=== PATIENT | male | born 1935 | race Caucasian/White ===

== ENCOUNTER 2018-12-18 11:23 | Inpatient (IN) | payer MEDICARE ==
[~2018-12-18] VITALS: Ht 188 cm; Wt 93.5 kg
[2018-12-18 12:10] LABS: Basophils # (auto) 0 uL; Basophils % (auto) 0.9 % (0.0-2.0); Eosinophils # (auto) 0.1 uL; Eosinophils % (auto) 1.3 % (0.0-7.0); Hematocrit 46.1 % (41.0-53.0); Hemoglobin 15.5 g/dL (13.5-17.5); Lymphocytes # (auto) 1.2 uL; Lymphocytes % (auto) 23.5 % (10.0-50.0); Mean Corpuscular Hemoglobin 32.2 pg (28.0-32.0); Mean Corpuscular Hgb Conc. 33.5 g/dL (32.0-36.0); Mean Corpuscular Volume 96.2 fL (80.0-100.0); Monocytes # (auto) 0.4 uL; Monocytes % (auto) 8.8 % (0.0-12.0); Neutrophils # (auto) 3.3 uL; Neutrophils % (auto) 65.5 % (37.0-80.0); Platelet Count (auto) 236 10^3/uL (140-450); Red Cell Distribution Width 13.6 % (11.8-14.3)
[2018-12-18 12:28] LABS: Albumin 3.7 g/dL (3.4-5.0); Anion Gap 8 (5-15); Blood Urea Nitrogen 9 mg/dL (7-18); Calcium 8.2 mg/dL (8.5-10.1); Carbon Dioxide 22 mmol/L (21-32); Chloride 108 mmol/L (98-107); Glucose 92 mg/dL (74-106); Potassium 3.8 mmol/L (3.5-5.1); Sodium 138 mmol/L (136-145)
[2018-12-18 12:33] LABS: Alanine Aminotransferase 18 U/L (16-61); Alkaline Phosphatase 69 U/L (45-117); Aspartate Aminotransferase 18 U/L (15-37); BUN/Creatinine Ratio 11.3; Bilirubin, Total 0.9 mg/dL (0.2-1.0); GFR African American 118 mL/min; GFR Non-African American 98 mL/min; Total Protein 6.3 g/dL (6.4-8.2)
[2018-12-18 12:42] LABS: INR 0.96 (0.9-1.15); Partial Thromboplastin Time 26.4 sec (23.78-33.04); Prothrombin Time 10.3 sec (9.27-12.13)
[2018-12-18] MEDS ORDERED: SODIUM CHLORIDE 0.9% 1,000 ML IV ONE (13:17)
[2018-12-18] MEDS ORDERED: hydrALAZINE HCL 20 MG/ML VL IV ONE ×2 (14:15→15:00)
[2018-12-18] MEDS ORDERED: PROMETHAZINE HCL 25 MG/ML 1ML IV PRN (15:00)
[2018-12-18] MEDS ORDERED: ACETAMINOPHEN 500 MG TAB PO PRN (15:00)
[2018-12-18] MEDS ORDERED: hydrALAZINE HCL 25 MG TAB PO ONE (15:00)
[2018-12-18] MEDS ORDERED: HYDROcodone-ACET 5/325MG TAB PO PRN (15:00)
[2018-12-18] MEDS ORDERED: LACTULOSE 20Gm/30ML SOLN PO PRN (15:00)
[2018-12-18] MEDS ORDERED: hydrALAZINE HCL 20 MG/ML VL IV PRN ×2 (15:00)
[2018-12-18] MEDS ORDERED: TEMAZEPAM 15 MG CAP PO PRN (15:00)
[2018-12-18] MEDS ORDERED: MORPHINE SULFATE 4 MG/ML SYR/VIAL IV PRN ×3 (15:00→18:30)
[2018-12-18] MEDS ORDERED: LORazepam 0.5 MG TAB PO PRN (15:00)
[2018-12-18] MEDS ORDERED: NITROGLYCERIN 0.4 MG SL TAB SL PRN ×2 (15:00→18:30)
[2018-12-18] MEDS: SODIUM CHLORIDE 0.9% 1,000 ML IV SCH ×2 (15:22→17:21)
[2018-12-18 15:23] LABS: Urine Bacteria NONE SEEN /hpf (None Seen); Urine Blood Negative /uL (Negative); Urine Specific Gravity 1.013 (1.001-1.035); Urine WBC <1 /hpf (0 - 3)
[2018-12-18] MEDS ORDERED: IOHEXOL 350 MG/ML 100ML IJ ONE (16:24)
[2018-12-18] MEDS ORDERED: LABETALOL HCL 5 MG/ML ML 20ML VIAL IV PRN (16:45)
[2018-12-18] MEDS ORDERED: ACETAMINOPHEN 650 MG RECT SUPP PR PRN (16:45)
[2018-12-18] MEDS ORDERED: LORazepam 2MG/ML-1ML VIAL IV PRN (16:45)
[2018-12-18 17:13] LABS: Cholesterol 210 mg/dL (< 200); Triglycerides 101 mg/dL (< 150)
[2018-12-18 17:15] LABS: HDL Cholesterol 60 mg/dL (40-59); LDL Cholesterol 132 mg/dL (< 100)
[2018-12-18] MEDS ORDERED: NICARDIPINE 25MG/250ML BAG KIT 250 ML IV SCH (17:30)
[2018-12-18] MEDS: hydrALAZINE HCL 20 MG/ML VL IV PRN (18:16)
[2018-12-18] MEDS ORDERED: ATORVASTATIN 20 MG TAB PO SCH (22:00)
[2018-12-18] MEDS: hydrALAZINE HCL 25 MG TAB PO SCH (22:00)
[2018-12-19 01:13] VITALS: BP 92/44
--- NOTE | 2018-12-19 01:24 | NUR ---
PT'S SON, SABINO TO BRING IN ACCURATE LIST OF HOME MEDS PT HAVING DIFFICULT TIME REMEMBERING AND ARTICULATING WORDS AND NAMES OF MEDICATIONS
[2018-12-19] MEDS ORDERED: hydrALAZINE HCL 20 MG/ML VL ONE ×3 (02:26→09:12)
[2018-12-19] MEDS: hydrALAZINE HCL 20 MG/ML VL IV PRN ×6 (02:30→20:05)
[2018-12-19] MEDS: SODIUM CHLORIDE 0.9% 1,000 ML IV SCH ×3 (03:36→15:50)
[2018-12-19] MEDS: hydrALAZINE HCL 25 MG TAB PO SCH ×3 (05:53→23:59)
[2018-12-19] MEDS ORDERED: LORazepam 2MG/ML-1ML VIAL ONE (08:08)
[2018-12-19] MEDS ORDERED: HALOPERIDOL LACTATE 5 MG/ML INJ VIAL ONE (08:55)
[2018-12-19] MEDS ORDERED: diphenhdrAMINE HCL 50 MG/1 ML VL ONE (08:56)
[2018-12-19] MEDS ORDERED: diphenhdrAMINE HCL 50 MG/1 ML VL IV ONE (09:00)
[2018-12-19] MEDS ORDERED: HALOPERIDOL LACTATE 5 MG/ML INJ VIAL IM ONE (09:00)
[2018-12-19 09:53] LABS: Folate (Folic Acid) 17.24 ng/mL (5.38-24)
[2018-12-19] MEDS: ASPirin 81 mg TAB PO SCH (10:00)
[2018-12-19] MEDS: PANTOPRAZOLE 40 MG TAB PO SCH (10:00)
[2018-12-19] MEDS ORDERED: ENOXAPARIN SOD 30 MG/0.3 ML SYRINGE ONE (10:18)
[2018-12-19] MEDS: ENOXAPARIN SOD 40 MG/0.4 ML SYRINGE SC SCH (10:19)
[2018-12-19] MEDS ORDERED: CYANOCOBALAMIN (B-12) 1000 MCG/1 ML VIAL SUBCUT ONE (13:00)
--- NOTE | 2018-12-19 13:30 | NUR ---
MS admit from [facility] admitted to tele room 5462i. Patient oriented to JUAN M LATIF, primary RN, unit, room, bed, and unit policies regarding patient care and visiting hours. A&Ox1-2 related to acute CVA, bedrest, and pain level 0//10. Per family, baseline is independent without assistive devices. Bed locked in lowest position, side rails up x2, call light within reach, and bed alarm on for patient safety. IV 20 g left forearm running NS at 80 ml/hr inserted on 12/18/18. Skin intact: generalized bruising on bilateral arms. Patient weighed by [email or web address] and encouraged to call if they need something. Addendum: 12/19/18 at 1906 by JUAN M LATIF RN Elena inserted on 12/18/18 for strict I/O.
[2018-12-19 14:00] VITALS: BP 184/99
--- NOTE | 2018-12-19 16:37 | NUR ---
SWALLOW EVALUATED. PATIENT ALOC. DIFFICULTY WITH ALERTNESS ENOUGH TO SWALLOW. ABLE TO TOLERATE PUREE TRIAL TEXTURE WITH MAXIMUM ENCOURAGEMENT. ABLE TO TOLERATE NECTAR THICKENED LIQUIDS WITH NO OVERT SIGNS OR SYMPTOMS OF ASPIRATION. NURSING NOTIFIED.
[2018-12-19 17:27] VITALS: BP 190/90
[2018-12-19 17:30] VITALS: BP 188/99
--- NOTE | 2018-12-19 19:35 | NUR ---
Opening Shift Note Assumed care of patient, awake and alert to self only. No S/S of distress/SOB on room air. Denies pain at this time. Bed locked in lowest position call light within reach. Instructed on POC and to call for assist PRN, will continue to monitor for changes Q1hr and PRN.
[2018-12-19 20:05] VITALS: BP 183/93
[2018-12-19 22:00] VITALS: BP 159/78
[2018-12-19] MEDS: ATORVASTATIN 20 MG TAB PO SCH (23:58)
--- NOTE | 2018-12-20 02:00 | NUR ---
Patient has 100 ml of UO in khanna catheter bag. Bladder scanner showed 100 ml at most. will continue to monitor
[2018-12-20] MEDS: SODIUM CHLORIDE 0.9% 1,000 ML IV SCH ×3 (04:20→15:24)
[2018-12-20] MEDS: hydrALAZINE HCL 20 MG/ML VL IV PRN ×4 (05:17→22:43)
[2018-12-20 05:56] VITALS: BP 171/98
[2018-12-20] MEDS: hydrALAZINE HCL 25 MG TAB PO SCH ×3 (06:55→22:41)
[2018-12-20 09:00] VITALS: BP 197/102
[2018-12-20] MEDS: ASPirin 81 mg TAB PO SCH (10:28)
[2018-12-20] MEDS: ENOXAPARIN SOD 40 MG/0.4 ML SYRINGE SC SCH (10:29)
[2018-12-20] MEDS: PANTOPRAZOLE 40 MG TAB PO SCH (10:29)
[2018-12-20] MEDS: CYANOCOBALAMIN (B-12) 1000 MCG/1 ML VIAL SUBCUT SCH (10:30)
--- NOTE | 2018-12-20 11:30 | NUR ---
DR. SARKAR AT BEDSIDE DISCUSSING POC WITH PATIENT AND SON SABINO. PATIENT IS TO BE TRANSFERRED TO [facility]
--- NOTE | 2018-12-20 11:30 | NUR ---
EEG COMPLETED AT BEDSIDE KATHARINE LILLY [phone] AWARE
[2018-12-20 12:15] LABS: Basophils # (auto) 0 uL; Eosinophils # (auto) 0 uL; Lymphocytes # (auto) 0.6 uL; Mean Corpuscular Volume 95.8 fL (80.0-100.0); Nucleated Red Blood Cells % 0.1 %
[2018-12-20 12:17] LABS: Basophils % (auto) 0.3 % (0.0-2.0); Eosinophils % (auto) 0.1 % (0.0-7.0); Hemoglobin 17.6 g/dL (13.5-17.5); Mean Corpuscular Hemoglobin 32.5 pg (28.0-32.0); Monocytes # (auto) 0.7 uL; Monocytes % (auto) 6.9 % (0.0-12.0); Neutrophils # (auto) 8.4 uL; Neutrophils % (auto) 86.7 % (37.0-80.0); Platelet Count (auto) 281 10^3/uL (140-450); Red Blood Cells 5.42 10^6/uL (4.5-5.90); Red Cell Distribution Width 13.9 % (11.8-14.3); White Blood Cell 9.7 10^3/uL (4.4-10.8)
[2018-12-20 12:31] LABS: Albumin 3.8 g/dL (3.4-5.0); Calcium 8.8 mg/dL (8.5-10.1); Magnesium 2.4 mg/dL (1.6-2.6); Potassium 3.5 mmol/L (3.5-5.1)
[2018-12-20 12:36] LABS: BUN/Creatinine Ratio 18.9; Bilirubin, Total 1.5 mg/dL (0.2-1.0); Total Protein 6.9 g/dL (6.4-8.2)
[2018-12-20 13:00] VITALS: BP 195/104
[2018-12-20 17:00] VITALS: BP 184/96
[2018-12-20 22:00] VITALS: BP 174/115
[2018-12-20] MEDS: ATORVASTATIN 20 MG TAB PO SCH (22:42)
[2018-12-21] MEDS: SODIUM CHLORIDE 0.9% 1,000 ML IV SCH ×2 (01:32)
[2018-12-21] MEDS: hydrALAZINE HCL 20 MG/ML VL IV PRN ×4 (03:29→23:01)
[2018-12-21 04:49] VITALS: BP 196/110
--- NOTE | 2018-12-21 07:00 | NUR ---
Opening Shift Note Assumed care of patient, awake and alert. No S/S of distress/SOB or pain. Instructed on POC and to call for assist PRN placed call light in patients left hand , will continue to monitor for changes Q1hr and PRN.
[2018-12-21] MEDS: hydrALAZINE HCL 25 MG TAB PO SCH ×3 (07:01→21:55)
[2018-12-21 08:16] VITALS: BP 103/107
[2018-12-21] MEDS ORDERED: LORazepam 2MG/ML-1ML VIAL IV PRN (09:00)
--- NOTE | 2018-12-21 09:07 | NUR ---
PAGED DR. SARKAR PATIENT IS RUNNING SVT HR AT 189
[2018-12-21] MEDS: PANTOPRAZOLE 40 MG TAB PO SCH (10:00)
[2018-12-21] MEDS: ASPirin 81 mg TAB PO SCH (10:00)
--- NOTE | 2018-12-21 10:05 | NUR ---
patient is still having accelerated HR. Dr. Mejia requesting EKG and cardiology consult
[2018-12-21] MEDS: CYANOCOBALAMIN (B-12) 1000 MCG/1 ML VIAL SUBCUT SCH (10:39)
[2018-12-21] MEDS: ENOXAPARIN SOD 40 MG/0.4 ML SYRINGE SC SCH (10:39)
[2018-12-21] MEDS ORDERED: METOPROLOL TARTRATE 1MG/1ML-5ML VIAL IV PRN (11:00)
[2018-12-21 12:26] VITALS: BP 179/107
--- NOTE | 2018-12-21 13:00 | NUR ---
patient down for MRI.
[2018-12-21 14:56] LABS: Free T3 2.18 pg/mL (2.3-4.2); Free T4 (Free Thyroxine) 1.14 ng/dL (0.89-1.76)
--- NOTE | 2018-12-21 15:00 | NUR ---
dr. barragan at bedside discussing poc with patient.
[2018-12-21] MEDS ORDERED: METOPROLOL TARTRATE 1MG/1ML-5ML VIAL IV ONE (15:15)
[2018-12-21 17:01] VITALS: BP 170/101
[2018-12-21] MEDS ORDERED: HALOPERIDOL LACTATE 5 MG/ML INJ VIAL IM PRN (20:30)
[2018-12-21 21:29] VITALS: BP 187/102
[2018-12-21] MEDS: ATORVASTATIN 20 MG TAB PO SCH (21:55)
[2018-12-21] MEDS: METOPROLOL TARTRATE 25 MG TAB PO SCH (21:56)
[2018-12-22] VITALS (54 sets, daily range): BP systolic 120–197; BP diastolic 60–116
[2018-12-22] MEDS: hydrALAZINE HCL 25 MG TAB PO SCH ×3 (06:00→22:00)
[2018-12-22 06:15] LABS: Basophils # (auto) 0 uL; Basophils % (auto) 0.5 % (0.0-2.0); Eosinophils # (auto) 0 uL; Eosinophils % (auto) 0.5 % (0.0-7.0); Hematocrit 48.4 % (41.0-53.0); Hemoglobin 16.5 g/dL (13.5-17.5); Lymphocytes # (auto) 0.7 uL; Lymphocytes % (auto) 9.2 % (10.0-50.0); Mean Corpuscular Hemoglobin 32.9 pg (28.0-32.0); Mean Corpuscular Hgb Conc. 34.1 g/dL (32.0-36.0); Mean Corpuscular Volume 96.6 fL (80.0-100.0); Monocytes # (auto) 0.7 uL; Neutrophils # (auto) 6.1 uL; Neutrophils % (auto) 80.8 % (37.0-80.0); Platelet Count (auto) 252 10^3/uL (140-450); Red Blood Cells 5.01 10^6/uL (4.5-5.90); Red Cell Distribution Width 13.9 % (11.8-14.3); White Blood Cell 7.6 10^3/uL (4.4-10.8)
[2018-12-22 06:24] LABS: Albumin 3.4 g/dL (3.4-5.0); Calcium 8.3 mg/dL (8.5-10.1); Magnesium 2.2 mg/dL (1.6-2.6); Potassium 3.3 mmol/L (3.5-5.1)
[2018-12-22] MEDS: hydrALAZINE HCL 20 MG/ML VL IV PRN ×3 (06:27→09:36)
[2018-12-22 06:30] LABS: BUN/Creatinine Ratio 30.4; Total Protein 6.2 g/dL (6.4-8.2)
[2018-12-22] MEDS: PANTOPRAZOLE 40 MG TAB PO SCH (10:00)
[2018-12-22] MEDS ORDERED: NICARDIPINE 25MG/250ML BAG KIT 250 ML IV SCH (10:00)
[2018-12-22] MEDS: METOPROLOL TARTRATE 25 MG TAB PO SCH (10:00)
--- NOTE | 2018-12-22 11:08 | NUR ---
SPOKE WITH DR GALLARDO. VERIFIED CARDENE IV GTT ORDER. NEW ORDER RECEIVED FOR CLONIDINE 0.2MG PO BID AND OK TO PLACE NGT IF NECESSARY.
--- NOTE | 2018-12-22 11:12 | NUR ---
OPEN. REPORT RECEIVED FROM ICU WOOD CUT ENGRAVER ROBIN, ASSUMED CARE OF THE PT. VITAL SIGNS STABLE AT THIS TIME, WITH EXCEPTION OF ELEVATED BP: 163/82. PT IS CURRENTLY ICU STATUS DUE TO CARDIAC MEDICATION GTT. NEW ORDERS VERIFIED WITH DR GALLARDO BY WOOD CUT ENGRAVER ROBIN. SEE INTERVENTIONS FOR INITIAL ASSESSMENT. WILL CONTINUE TO MONITOR PT.
[2018-12-22] MEDS: cloNIDine HCL 0.1 MG TAB PO SCH (11:15)
[2018-12-22] MEDS ORDERED: cloNIDine HCL 0.1 MG TAB PO ONE (11:15)
--- NOTE | 2018-12-22 12:07 | NUR ---
assessment Patient is a 83 year old male who is confused. Per patients son Issa they were traveling to the [facility] when patient became ill and was transported to ER. Prior to admission patient lived home with his son Issa and functioned with assistance for memory and cooking. Patient showered, dressed, and ambulated on his own, patient was able to feed himself. Per Issa patient will need rehab for this new CVA. Issa has requested [facility] [phone] fax [phone]. Per consult transfer for rehabilitation. MD order has been sent to [facility]. Waiting on reply back now. Addendum: 12/22/18 at 1213 by Judy TOMLIN Amended: Links added.
[2018-12-22] MEDS: POTASSIUM CHL 20MEQ/100ML 100 ML IV SCH ×2 (12:45→14:30)
[2018-12-22] MEDS: CYANOCOBALAMIN (B-12) 1000 MCG/1 ML VIAL SUBCUT SCH (12:51)
[2018-12-22] MEDS: ASPirin 81 mg TAB PO SCH (13:26)
--- NOTE | 2018-12-22 14:47 | NUR ---
NUTRITION ASSESSMENT NOTES Please refer to link notes of nutrition screen form filed under the intervention section of the plan of care for further details. Est. Needs: 2150 kcal to 2600 kcal (25-30 kcal/kgBW), 87 gms to 104 gms pro (1.0-1.2 gms/kgBW). Will continue to monitor pertinent labs and reassess nutrient need prn Thank you. Addendum: 12/22/18 at [address] Amended: Links added.
--- NOTE | 2018-12-22 15:24 | NUR ---
DR GALLARDO NOTIFIED OF RUNS OF SVT. NEW ORDERS IN PLACE AT THIS TIME.
[2018-12-22] MEDS: NICARDIPINE 25MG/250ML BAG KIT 250 ML IV SCH (16:15)
[2018-12-22 17:01] LABS: Albumin 3.6 g/dL (3.4-5.0); Calcium 8.3 mg/dL (8.5-10.1); Magnesium 2.2 mg/dL (1.6-2.6); Potassium 3.8 mmol/L (3.5-5.1)
[2018-12-22] MEDS: MAGNESIUM SULFATE 1GM/100ML 100 ML IV SCH ×2 (17:01→17:49)
[2018-12-22 17:03] LABS: BUN/Creatinine Ratio 31.7
[2018-12-22 17:15] LABS: Bilirubin, Total 1.8 mg/dL (0.2-1.0); Total Protein 6.8 g/dL (6.4-8.2)
--- NOTE | 2018-12-22 17:46 | NUR ---
DR FIGUEROA AT BEDSIDE, EXAMINED PATIENT AND SPOKE WITH SON
[2018-12-22] MEDS: METOPROLOL TARTRATE 1MG/1ML-5ML VIAL IV SCH ×2 (19:15→22:00)
[2018-12-22] MEDS ORDERED: cloNIDine HCL 0.1 MG TAB PO SCH (22:00)
[2018-12-23] VITALS (84 sets, daily range): BP systolic 96–183; BP diastolic 55–102
[2018-12-23] MEDS: ATORVASTATIN 20 MG TAB PO SCH ×2 (00:01→21:26)
[2018-12-23] MEDS: cloNIDine HCL 0.1 MG TAB PO SCH ×3 (00:01→21:25)
[2018-12-23] MEDS: METOPROLOL TARTRATE 1MG/1ML-5ML VIAL IV SCH ×3 (02:00→10:53)
--- NOTE | 2018-12-23 02:39 | NUR ---
Rounds PT resting in bed. no signs/symptoms of distress noted. will continue to monitor.
--- NOTE | 2018-12-23 02:43 | NUR ---
BLOOD PRESSURE 105/64. NICARDIPINE DRIP TURNED DOWN TO 2MG AT THIS TIME.
[2018-12-23 04:04] LABS: Basophils # (auto) 0.1 uL; Basophils % (auto) 1.1 % (0.0-2.0); Eosinophils # (auto) 0 uL; Eosinophils % (auto) 0.4 % (0.0-7.0); Hematocrit 47.7 % (41.0-53.0); Hemoglobin 16.3 g/dL (13.5-17.5); Lymphocytes # (auto) 0.4 uL; Lymphocytes % (auto) 6.7 % (10.0-50.0); Mean Corpuscular Hemoglobin 33.1 pg (28.0-32.0); Mean Corpuscular Hgb Conc. 34.1 g/dL (32.0-36.0); Monocytes # (auto) 0.6 uL; Monocytes % (auto) 9.3 % (0.0-12.0); Neutrophils # (auto) 5.5 uL; Neutrophils % (auto) 82.5 % (37.0-80.0); Platelet Count (auto) 245 10^3/uL (140-450); Red Blood Cells 4.91 10^6/uL (4.5-5.90); White Blood Cell 6.7 10^3/uL (4.4-10.8)
[2018-12-23 04:14] LABS: Potassium 3.6 mmol/L (3.5-5.1)
[2018-12-23 04:19] LABS: Albumin 3.3 g/dL (3.4-5.0); BUN/Creatinine Ratio 40.8; Bilirubin, Total 1.6 mg/dL (0.2-1.0); Calcium 8.4 mg/dL (8.5-10.1); Total Protein 6.1 g/dL (6.4-8.2)
[2018-12-23] MEDS: hydrALAZINE HCL 25 MG TAB PO SCH (06:00)
--- NOTE | 2018-12-23 07:42 | NUR ---
OPEN. REPORT RECEIVED FROM EXTERN RN ALURA, ASSUMED CARE OF PT. VITAL SIGNS STABLE AT THIS TIME, SEE INTERVENTIONS FOR INITIAL ASSESSMENT. WILL CONTINUE TO MONITOR PT.
[2018-12-23] MEDS: NICARDIPINE 25MG/250ML BAG KIT 250 ML IV SCH ×3 (09:41→14:41)
[2018-12-23] MEDS: PANTOPRAZOLE 40 MG TAB PO SCH (10:00)
[2018-12-23] MEDS: ASPirin 81 mg TAB PO SCH (10:33)
[2018-12-23] MEDS: CYANOCOBALAMIN (B-12) 1000 MCG/1 ML VIAL SUBCUT SCH (10:34)
--- NOTE | 2018-12-23 12:08 | NUR ---
DR GALLARDO AT BEDSIDE, NEW ORDERS IN PLACE A THIS TIME.
[2018-12-23] MEDS ORDERED: LISINOPRIL 20 MG TAB PO ONE (12:15)
--- NOTE | 2018-12-23 12:55 | NUR ---
DR SARKAR AT BEDSIDE, NO NEW ORDERS AT THIS TIME.
--- NOTE | 2018-12-23 13:05 | NUR ---
PT TO REMAIN ICU STATUS MINIMUM ONE MORE NIGHT PER DR SARKAR, WILL CONTINUE TO MONITOR PT.
[2018-12-23] MEDS: Ensure Enlive Strawberry 8oz Bottle PO SCH (18:00)
[2018-12-23] MEDS: hydrALAZINE HCL 20 MG/ML VL IV PRN (18:52)
--- NOTE | 2018-12-23 19:35 | NUR ---
RECEIVED REPORT FROM DAY SHIFT RN.
[2018-12-23] MEDS: LISINOPRIL 20 MG TAB PO SCH (21:26)
[2018-12-23] MEDS: METOPROLOL TARTRATE 25 MG TAB PO SCH (21:26)
--- NOTE | 2018-12-23 22:42 | NUR ---
OPEN RECEIVED REPORT FROM DAY SHIFT RN. PT RESTING IN BED WITH EYES CLOSED. RESPONDS TO VERBAL STIMULI AND OPENS EYES. SPEECH IS DELAYED AND SLIGHTLY SLURRED BUT APPROPRIATE. PT STATED HE IS NOT HUNGRY WHEN ASKED IF HE WANTED SOME OF HIS DINNER. ENCOURAGED PT TO EAT. PT VERBALIZED UNDERSTANDING. LUNGS SOUND CLEAR. RIGHT HAND IS WEAKER THAN LEFT. SEE FULL ASSESSMENT IN INTERVENTIONS. BABB CATHETER IN PLACE AND DRAINING TO GRAVITY. NO S/S OF DISTRESS NOTED. REPOSITIONED AND TURNED FOR COMFORT. PT IN FULL VIEW OF RN. WILL CONTINUE TO MONITOR CLOSELY.
[2018-12-24] VITALS (81 sets, daily range): BP systolic 119–209; BP diastolic 57–113
[2018-12-24] MEDS: hydrALAZINE HCL 20 MG/ML VL IV PRN ×3 (02:04→14:37)
--- NOTE | 2018-12-24 03:30 | NUR ---
PARTIAL LINEN CHANGE PERFORMED AND CLEANSED PT WITH WIPES. BLOOD CLOTS NOTED IN BABB CATHETER.
[2018-12-24 03:49] LABS: Basophils # (auto) 0 uL; Basophils % (auto) 0.3 % (0.0-2.0); Eosinophils # (auto) 0.1 uL; Eosinophils % (auto) 1.1 % (0.0-7.0); Hematocrit 47.5 % (41.0-53.0); Hemoglobin 16.3 g/dL (13.5-17.5); Lymphocytes # (auto) 0.7 uL; Lymphocytes % (auto) 10.4 % (10.0-50.0); Mean Corpuscular Hemoglobin 33.1 pg (28.0-32.0); Mean Corpuscular Hgb Conc. 34.3 g/dL (32.0-36.0); Mean Corpuscular Volume 96.5 fL (80.0-100.0); Monocytes # (auto) 0.7 uL; Monocytes % (auto) 10.6 % (0.0-12.0); Neutrophils # (auto) 4.8 uL; Neutrophils % (auto) 77.6 % (37.0-80.0); Nucleated Red Blood Cells % 0.2 %; Platelet Count (auto) 236 10^3/uL (140-450); Red Blood Cells 4.92 10^6/uL (4.5-5.90); Red Cell Distribution Width 13.7 % (11.8-14.3); White Blood Cell 6.2 10^3/uL (4.4-10.8)
[2018-12-24 04:07] LABS: Potassium 3.5 mmol/L (3.5-5.1)
[2018-12-24 04:16] LABS: Albumin 3.2 g/dL (3.4-5.0); BUN/Creatinine Ratio 39.5; Bilirubin, Total 1.5 mg/dL (0.2-1.0); Calcium 8.1 mg/dL (8.5-10.1); Magnesium 2.2 mg/dL (1.6-2.6)
[2018-12-24] MEDS: NICARDIPINE 25MG/250ML BAG KIT 250 ML IV SCH ×4 (05:41→20:41)
--- NOTE | 2018-12-24 06:28 | NUR ---
HTN BLOOD PRESSURE 180/102. HYDRALAZINE 20 MG GIVEN.
--- NOTE | 2018-12-24 07:15 | NUR ---
OPEN. REPORT RECEIVED FROM ETHICAL HACKER RN LAURA, ASSUMED CARE OF PT. VITAL SIGNS STABLE AT THIS TIME, SEE INTERVENTIONS FOR INITIAL ASSESSMENT. WILL CONTINUE TO MONITOR PT.
[2018-12-24] MEDS: Ensure Enlive Strawberry 8oz Bottle PO SCH ×3 (08:00→18:17)
[2018-12-24] MEDS: CYANOCOBALAMIN (B-12) 1000 MCG/1 ML VIAL SUBCUT SCH (09:02)
[2018-12-24] MEDS: LISINOPRIL 20 MG TAB PO SCH (09:02)
[2018-12-24] MEDS: cloNIDine HCL 0.1 MG TAB PO SCH (09:03)
[2018-12-24] MEDS: ASPirin 81 mg TAB PO SCH (09:03)
[2018-12-24] MEDS: METOPROLOL TARTRATE 25 MG TAB PO SCH ×2 (09:03→22:00)
[2018-12-24] MEDS: PANTOPRAZOLE 40 MG TAB PO SCH (09:04)
[2018-12-24] MEDS ORDERED: SOD CHL 0.45% 1,000 ML IV SCH (10:30)
--- NOTE | 2018-12-24 10:35 | NUR ---
DR FIGUEROA AT BEDSIDE, NEW ORDERS IN PLACE.
--- NOTE | 2018-12-24 10:45 | NUR ---
DR GALLARDO AT BEDSIDE, NEW ORDERS IN PLACE. NEW CHANGES TO BLOOD PRESSURE MED REGIME.
--- NOTE | 2018-12-24 11:12 | NUR ---
DR ZEPEDA CONSULTED ON PT, NEW ORDERS IN PLACE.
[2018-12-24] MEDS: SOD CHL 0.45% 1,000 ML IV SCH ×2 (11:15→23:17)
[2018-12-24] MEDS ORDERED: D5W 5% 1,000 ML IV ONE (11:15)
--- NOTE | 2018-12-24 11:30 | NUR ---
PT AWAY AT MRI PER DR FIGUEROA'S ORDERS.
[2018-12-24] MEDS: hydrALAZINE HCL 25 MG TAB PO SCH ×4 (12:00→23:31)
--- NOTE | 2018-12-24 12:15 | NUR ---
PT RETURNED FROM MRI.
--- NOTE | 2018-12-24 12:22 | NUR ---
PT'S SON SABINO UPDATED ON PT'S CONDITION PER DR. SARKAR'S REQUEST. SABINO SAID HE WILL BE AT THE HOSPITAL IN APPROXIMATELY 2 HOURS.
--- NOTE | 2018-12-24 12:28 | NUR ---
DR GALLARDO PAGED RELATED TO LOW HEART RATE.
--- NOTE | 2018-12-24 12:31 | NUR ---
DR GALLARDO RETURNED CALL. NEW ORDERS IN PLACE.
[2018-12-24] MEDS ORDERED: cloNIDine 0.2 mg/24hr 7DAY PATCH TD SCH (14:00)
--- NOTE | 2018-12-24 15:09 | NUR ---
PT'S SON AT BEDSIDE. DR SARKAR PAGED PER MD REQUEST.
--- NOTE | 2018-12-24 15:30 | NUR ---
DR SARKAR AT BEDSIDE TO DISCUSS PT'S CODE STATUS WITH PT'S FAMILY MEMBER; SON - SABINO.
[2018-12-24 19:09] LABS: BUN/Creatinine Ratio 35.1; Calcium 8.2 mg/dL (8.5-10.1); Potassium 3.6 mmol/L (3.5-5.1)
--- NOTE | 2018-12-24 20:30 | NUR ---
Opening Shift Note Assumed care of patient, lying on bed with eyes closed, arousal by voice, unclear and delayed speech. Breathing on room air, even and nonlabored, No S/S of distress/SOB. Denies pain. 20G saline lock at right wrist, flushed well, slightly puffy, denies pain at the site, will continue to observe. 20G on left FA infusing D5W at 100ml/hr, intact site. Parker's hung to gravity with clear light keren urine. Bed in low position, call light with in reach, fall and safety precaution in place, all alarms are audible. Instructed on POC and to call for assist PRN, will continue to monitor for changes Q1hr and PRN.
--- NOTE | 2018-12-24 21:00 | NUR ---
Hypertension Pt resting on bed, no s/s of distress or SOB, HR 60's, SBP high 170's, will administer Clonidine PRN as order. Continue monitoring. Addendum: 12/25/18 at 0520 by Nazanin Velasco RN 22.00 SBP decreased to 150's, condition stable. Continue care and monitoring.
[2018-12-24] MEDS: ATORVASTATIN 20 MG TAB PO SCH (21:12)
[2018-12-24] MEDS: cloNIDine HCL 0.1 MG TAB PO PRN (21:13)
--- NOTE | 2018-12-24 23:30 | NUR ---
Supplement Pt does not feel hungry but will eat something. Pt chose custard. Fed custard to Pt, Pt able to swallow slowly, no coughing, tolerated well. Slowly swallowed thickened water, no coughing. Continue care.
[2018-12-25] VITALS (62 sets, daily range): BP systolic 116–194; BP diastolic 52–98
[2018-12-25] MEDS: NICARDIPINE 25MG/250ML BAG KIT 250 ML IV SCH ×4 (01:41→11:30)
[2018-12-25 03:50] LABS: Basophils # (auto) 0 uL; Basophils % (auto) 0.3 % (0.0-2.0); Eosinophils # (auto) 0 uL; Eosinophils % (auto) 0.2 % (0.0-7.0); Hemoglobin 14.9 g/dL (13.5-17.5); Lymphocytes # (auto) 0.9 uL; Lymphocytes % (auto) 11.8 % (10.0-50.0); Mean Corpuscular Hemoglobin 32.8 pg (28.0-32.0); Mean Corpuscular Hgb Conc. 33.8 g/dL (32.0-36.0); Mean Corpuscular Volume 97.1 fL (80.0-100.0); Monocytes # (auto) 0.7 uL; Monocytes % (auto) 9.4 % (0.0-12.0); Neutrophils # (auto) 5.9 uL; Neutrophils % (auto) 78.3 % (37.0-80.0); Nucleated Red Blood Cells % 0.1 %; Platelet Count (auto) 205 10^3/uL (140-450); Red Blood Cells 4.54 10^6/uL (4.5-5.90); Red Cell Distribution Width 13.8 % (11.8-14.3); White Blood Cell 7.5 10^3/uL (4.4-10.8)
[2018-12-25] MEDS: hydrALAZINE HCL 20 MG/ML VL IV PRN ×2 (04:02→22:03)
[2018-12-25 04:08] LABS: Calcium 7.8 mg/dL (8.5-10.1); Potassium 3.3 mmol/L (3.5-5.1)
[2018-12-25 04:13] LABS: Albumin 2.8 g/dL (3.4-5.0); BUN/Creatinine Ratio 34.6; Bilirubin, Total 1.1 mg/dL (0.2-1.0); Total Protein 5.4 g/dL (6.4-8.2)
--- NOTE | 2018-12-25 06:30 | NUR ---
IV removal IV DC'd with sterile technique, catheter fully intact, due to leaking. Pressure dressing applied to site. Patient tolerated procedure well.
[2018-12-25] MEDS: hydrALAZINE HCL 25 MG TAB PO SCH ×3 (08:06→18:00)
[2018-12-25] MEDS: SOD CHL 0.45% 1,000 ML IV SCH (08:07)
[2018-12-25] MEDS: Ensure Enlive Strawberry 8oz Bottle PO SCH ×3 (08:07→18:00)
[2018-12-25] MEDS: ASPirin 81 mg TAB PO SCH (08:30)
[2018-12-25] MEDS: CYANOCOBALAMIN (B-12) 1000 MCG/1 ML VIAL SUBCUT SCH (08:30)
[2018-12-25] MEDS: METOPROLOL TARTRATE 25 MG TAB PO SCH ×2 (08:31→22:00)
[2018-12-25] MEDS: PANTOPRAZOLE 40 MG TAB PO SCH (08:31)
[2018-12-25] MEDS: cloNIDine HCL 0.1 MG TAB PO PRN (08:49)
--- NOTE | 2018-12-25 09:28 | NUR ---
NUTRITION MAX ASSISTANCE REQUIRED DURING MEAL. PT GIVEN 75% OF PUREED, NECTAR THICKENED LIQUIDS. PT ONLY NOTED TO COUGH WITH THICKENED ENSURE. PT TOLERATED OATMEAL, SCRAMBLE, APPLE SAUCE WITHOUT ANY COUGHING NOTED. ASPIRATION PRECAUTIONS FOLLOWED. PT TOLERATED WELL, SON SABINO AT BEDSIDE UPDATED ON PATIENT STATUS, QUESTIONS AND CONCERNS ADDRESSED. NEPHROLOIGST AT BEDSIDE ALSO UPDATED FAMILY ON PATIENTS CURRENT STATUS. SEE NEW ORDERS.
[2018-12-25] MEDS ORDERED: NITROGLYCERIN 0.2MG/HR TOPICAL PATCH TD ONE (11:30)
--- NOTE | 2018-12-25 12:30 | NUR ---
NUTRITION PATIENT ATE 75% OF LUNCH TRAY. MAX- MOD ASSISTANCE REQUIRED. PT PRIMARILY RIGHT HANDED WITH RIGHT HANDED WEAKNESS. PT ABLE TO FEED SELF WITH LEFT HAND USING MODERATE ASSISTANCE. PT ATE MEAL WITHOUT ANY COUGHING OR DIFFICULTY NOTED.
--- NOTE | 2018-12-25 13:00 | NUR ---
DR. FIGUEROA AT BEDSIDE MD UPDATED ON PATIENTS STATUS. SEE MD NOTES/ ORDERS
[2018-12-25] MEDS: D5W 5% 1,000 ML IV SCH ×2 (13:39→22:02)
[2018-12-25] MEDS: POTASSIUM CHL 20MEQ/100ML 100 ML IV SCH ×2 (13:42→15:55)
--- NOTE | 2018-12-25 13:49 | NUR ---
HOSPITALIST AT BEDSIDE DR. WHITE AT BEDSIDE. MD UPDATED ON PATIENTS STATUS. NEW ORDERS IN PLACE.
[2018-12-25] MEDS ORDERED: LACTULOSE 20Gm/30ML SOLN PO PRN (14:00)
[2018-12-25] MEDS ORDERED: LACTULOSE 20Gm/30ML SOLN PO ONE (14:00)
--- NOTE | 2018-12-25 16:45 | NUR ---
DR. MITCHELL CALLED, UPDATED ON PLAN OF TERMINAL WEAN, MD VERBALIZED UNDERSTANDING. NO NEW ORDERS.
--- NOTE | 2018-12-25 17:00 | NUR ---
ELIMINATION PATIENT HAD A MODERATE-LARGE LOOSE , BROWN BM. SKIN CLEANSED. BABB CARE PROVIDED. PARTIAL LINEN CHANGE COMPLETE. SKIN REMAINS INTACT.
--- NOTE | 2018-12-25 19:00 | NUR ---
NUTRITION PATIENT HAD 15% OF DINNER TRAY, PT STATED HE WAS NOT VERY HUNGRY. ASPIRATION PRECAUTIONS IN PLACE. FAMILY AT BEDSIDE.
--- NOTE | 2018-12-25 19:45 | NUR ---
Opening Shift Note Assumed care of patient, awake and alert, sitting on the bed. Breathing even and nonlabored with room air breathing, No S/S of distress/SOB. Denies pain. 20G on left FA infusing D5W at 100ml/hr.Parker's cath hung to gravity with light keren urine. Bed in low position, call light within reach, all alarms are audible, fall and safety precautions in place. Instructed on POC and to call for assist PRN, will continue to monitor for changes Q1hr and PRN. Addendum: 12/25/18 at 2032 by Nazanin Velasco RN Pt stated he wants soda, informed Pt that hospital does not provide soda, only juice and milk. Pt chose apple juice, able to swallow slowly with out any coughing noted, tolerated well. Continue care.
--- NOTE | 2018-12-25 21:30 | NUR ---
Condition update/ hypertension SBP at 160-170's while Pt resting on the bed, HR low in the 40's, will administer Apresoline 20mg IV PRN as order, will administer half of the ordered dose and will monitor BP then will give the rest if BP still high. Held Lopressor due to bradycardia. Addendum: 12/25/18 at 2333 by Nazanin Velasco RN BP after Apresoline 10mg IV, 116/63, HR 40's, will hold the rest 10mg Apresoline. Continue monitoring.
[2018-12-25] MEDS: ATORVASTATIN 20 MG TAB PO SCH (22:01)
[2018-12-26] VITALS (57 sets, daily range): BP systolic 115–208; BP diastolic 51–92
--- NOTE | 2018-12-26 00:30 | NUR ---
Condition update Pt lying on bed with eyes closed, resting comfortably, SBP from 140's at 00.00am decreased to 115 at 00.30am, will hold Apresoline at 00.00am for now and continue to monitor.
--- NOTE | 2018-12-26 04:15 | NUR ---
Patient bathe/linen change Patient given complete bath. Skin integrity assessed for any changes, no new changes, z-guard applied at quinn area. Linens changed. Patient repositioned for comfort. Mouth care done. Active ROM and passive ROM done.
[2018-12-26 04:31] LABS: Basophils # (auto) 0 uL; Basophils % (auto) 0.6 % (0.0-2.0); Eosinophils # (auto) 0.2 uL; Hematocrit 42.1 % (41.0-53.0); Hemoglobin 14.6 g/dL (13.5-17.5); Lymphocytes # (auto) 1.1 uL; Lymphocytes % (auto) 18.8 % (10.0-50.0); Mean Corpuscular Hemoglobin 33.4 pg (28.0-32.0); Mean Corpuscular Hgb Conc. 34.6 g/dL (32.0-36.0); Mean Corpuscular Volume 96.5 fL (80.0-100.0); Monocytes # (auto) 0.4 uL; Monocytes % (auto) 6.2 % (0.0-12.0); Neutrophils # (auto) 4.4 uL; Neutrophils % (auto) 71.4 % (37.0-80.0); Nucleated Red Blood Cells % 0.1 %; Platelet Count (auto) 188 10^3/uL (140-450); Red Blood Cells 4.36 10^6/uL (4.5-5.90); Red Cell Distribution Width 13.9 % (11.8-14.3); White Blood Cell 6.1 10^3/uL (4.4-10.8)
[2018-12-26 04:33] LABS: Albumin 2.6 g/dL (3.4-5.0); Calcium 7.3 mg/dL (8.5-10.1); Potassium 3.4 mmol/L (3.5-5.1)
[2018-12-26 04:38] LABS: BUN/Creatinine Ratio 35.5; Bilirubin, Total 1.2 mg/dL (0.2-1.0); Total Protein 5.2 g/dL (6.4-8.2)
[2018-12-26] MEDS: hydrALAZINE HCL 25 MG TAB PO SCH ×5 (04:48→23:53)
--- NOTE | 2018-12-26 04:50 | NUR ---
Hypertension SBP increased to 160's at rest and 190's with activities, medicated Pt with Apresoline scheduled at 6am. Pill crushed and mix with apple sauce, Pt swallow without coughing noted. Continue to monitor.
--- NOTE | 2018-12-26 07:30 | NUR ---
OPEN. REPORT RECEIVED FROM [employer] [employer] REPORTER RN KENDY, ASSUMED CARE OF PT. VITAL SIGNS STABLE AT THIS TIME WITH EXCEPTION OF PERSISTENT BRADYCARDIA AND HYPERTENSION; MD'S AWARE. SEE INTERVENTIONS FOR INITIAL ASSESSMENT. PT CURRENTLY MOI STATUS. WILL CONTINUE TO MONITOR PT.
--- NOTE | 2018-12-26 07:58 | NUR ---
DR FIGUEROA AT BEDSIDE. NO NEW ORDERS AT THIS TIME.
[2018-12-26] MEDS: Ensure Enlive Strawberry 8oz Bottle PO SCH ×3 (08:30→18:22)
--- NOTE | 2018-12-26 09:20 | NUR ---
PHYSICAL THERAPY AT BEDSIDE.
[2018-12-26] MEDS: PANTOPRAZOLE 40 MG/10 ML VIAL IV SCH (09:38)
[2018-12-26] MEDS: ASPirin 81 mg TAB PO SCH (09:38)
[2018-12-26] MEDS: NITROGLYCERIN 0.2MG/HR TOPICAL PATCH TD SCH (09:38)
[2018-12-26] MEDS: METOPROLOL TARTRATE 25 MG TAB PO SCH ×2 (09:39→21:37)
[2018-12-26] MEDS: CYANOCOBALAMIN (B-12) 1000 MCG/1 ML VIAL SUBCUT SCH (09:39)
[2018-12-26] MEDS: D5W 5% 1,000 ML IV SCH (10:50)
--- NOTE | 2018-12-26 15:23 | NUR ---
Nutrition Follow-up Notes Wt.: 84.6 kg as of yesterday. Pt's asleep, no signs of distress noted earlier, currently on Pureed Cardiac: 2 gms Na, Low Chol, Low Fat diet with Ensure Enlive 1 carton TID with fair PO intake aeb 70% ave. consumed meals (x5) in last 2 days. Noted pt's for active Nephrology consult. Est. Needs: 2150 kcal to 2600 kcal (25-30 kcal/kgBW), 87 gms to 104 gms pro (1.0-1.2 gms/kgBW). Will continue to monitor pertinent labs and reassess nutrient need prn Labs: Cl 112 H, K 3.4 L, BUN 22 H, Cr 0.62 L, Ca 7.3 L, Tot yajaira 1.2 H, Tpro 5.2 L, Alb 2.6 L Skin: Aayush scale 13, mod risk, skin intact per creative consultant. GI: Pt had 1 BM yesterday per creative consultant. PES: Increased nutrient needs r/t current/chronic medical status aeb Dementia, ALOC,<75% consumed meals. Altered nutrition related lab values r/t current/chronic medical condition aeb hypernatremia, hypokalemia, hyperchloremia, elev. BUN, hyperbilirubinemia, hypocalcemia. Will continue to monitor PO intake, skin status, pertinent labs and weight trend. F/u in 3 to 5 days. Rec.: 1.) Continue close supervision and feeding assistance prn with meals. 2.) If Albumin level continues trending down, consider Prostat 1 pkt BID. 3.) Refer pt to RD for further nutrition education and weight monitoring upon discharge. 4.) Continue current plan of care.
[2018-12-26] MEDS: SOD CHL 0.45% 1,000 ML IV SCH (16:45)
--- NOTE | 2018-12-26 16:59 | NUR ---
SBAR report received from KATHARINE Leonardo.
--- NOTE | 2018-12-26 17:00 | NUR ---
Paged Dr. Sanchez for potassium order for potassium level 3.4.
--- NOTE | 2018-12-26 17:15 | NUR ---
Received patient from ICU- to [facility]. Neuro: patient a/o x2 to self and place, right sided weakness, weak chief scientist to right hand, pupils equal and left eye is red and irritated (irrigated with saline). Cardiac: patient is sinus natalia 48 hr no ectopy. Blood pressure 158/88. Musculo: Right side weakness, left side normal. Lungs: lungs are clear and diminished at the bases-room air. Skin: No skin issues except left eye is red and irritated. Patient has a khanna catheter with pinkish/bloody urine from trauma (puling). New khanna placed by ICU nurse Jorden. No c/o pain or SOB. Placed on 100mls of 1/2 NS per order. IV line to LFA intact and patent. Continue to monitor.
--- NOTE | 2018-12-26 17:42 | NUR ---
PT TRANSPORTED TO [facility]I ROOM 264 VIA BED. REPORT GIVEN TO MOI RN MARIA LUZ. ENDORSED CARE OF PT.
--- NOTE | 2018-12-26 19:00 | NUR ---
OPENING NOTE ASSUMED CARE OF PT AT THIS TIME, REPORT RECEIVED FROM DAY SHIFT RN. POC REVIEWED, HEAD TO TOE ASSESSMENT COMPLETE, SEE INTERVENTION SPREADSHEET AT THIS TIME. PT NEURO STATUS: PT KNOWS NAME AND WHERE THE PT LIVES, BUT DOES NOT KNOW WHERE SPECIFICALLY THE PT IS. PT HAS MARKED RIGHT SIDE DEFICIT. PT ABLE TO EXPRESS NEEDS ALTHOUGH DELAYED. RECEIVED PT ON ROOM AIR, O2 SAT 97%. PT HAS ELEVATED BP 208/89, AND HR 54 WITH BBB. PULSES PALPABLE. IV SITE BENIGN. FC DRAINING TO GRAVITY, URINE OUTPUT PINK. PT HAS REDNESS AND PUFFINESS AROUND LEFT EYE. PT COMPLAINING OF DISCOMFORT IN LEFT EYE. BED LOCKED AND IN LOWEST POSITION, SAFETY PRECAUTIONS IN PLACE. PT ORIENTED TO CALL DUVALL. SUCTION AND BVM AT BEDSIDE. WILL MONITOR PT CAREFULLY.
--- NOTE | 2018-12-26 19:35 | NUR ---
Endorsed care to KATHARINE Nur.
[2018-12-26] MEDS: hydrALAZINE HCL 20 MG/ML VL IV PRN (20:03)
--- NOTE | 2018-12-26 20:12 | NUR ---
PRN BP MEDS GIVEN FOR BP 208/89. WILL ASSESS FOR OUTCOME.
[2018-12-26] MEDS: ATORVASTATIN 20 MG TAB PO SCH (21:23)
--- NOTE | 2018-12-26 21:35 | NUR ---
pt agitated, states " this is not going to work out for me, please call my son and keep the money." Pt reassured that pt is in the hospital and plans are being made to send him home with his son. Pt assisted to comfortable sleeping situation and reassured of constant care.
[2018-12-27] VITALS (8 sets, daily range): BP systolic 148–225; BP diastolic 76–119
[2018-12-27] MEDS: SOD CHL 0.45% 1,000 ML IV SCH ×3 (02:45→13:52)
--- NOTE | 2018-12-27 04:16 | NUR ---
FOUND PT REMOVING GOWN, SOCK AND ECG PATCHES. REORIENTATION PROVIDED.
[2018-12-27] MEDS: hydrALAZINE HCL 20 MG/ML VL IV PRN ×4 (04:31→20:16)
[2018-12-27 05:25] LABS: Basophils # (auto) 0 uL; Basophils % (auto) 0.4 % (0.0-2.0); Eosinophils # (auto) 0.1 uL; Eosinophils % (auto) 1.3 % (0.0-7.0); Hematocrit 45.7 % (41.0-53.0); Hemoglobin 15.7 g/dL (13.5-17.5); Lymphocytes # (auto) 0.6 uL; Mean Corpuscular Hemoglobin 32.7 pg (28.0-32.0); Mean Corpuscular Hgb Conc. 34.4 g/dL (32.0-36.0); Mean Corpuscular Volume 94.9 fL (80.0-100.0); Monocytes # (auto) 0.5 uL; Monocytes % (auto) 6.9 % (0.0-12.0); Neutrophils % (auto) 83.4 % (37.0-80.0); Nucleated Red Blood Cells % 0.2 %; Platelet Count (auto) 220 10^3/uL (140-450); Red Blood Cells 4.81 10^6/uL (4.5-5.90); Red Cell Distribution Width 13.4 % (11.8-14.3); White Blood Cell 7.1 10^3/uL (4.4-10.8)
[2018-12-27 05:27] LABS: BUN/Creatinine Ratio 21.3; Calcium 7.7 mg/dL (8.5-10.1); Potassium 3.2 mmol/L (3.5-5.1)
[2018-12-27 05:29] LABS: Bilirubin, Total 1.4 mg/dL (0.2-1.0); Total Protein 5.9 g/dL (6.4-8.2)
[2018-12-27] MEDS: hydrALAZINE HCL 25 MG TAB PO SCH ×3 (06:21→17:25)
[2018-12-27] MEDS: Ensure Enlive Strawberry 8oz Bottle PO SCH ×3 (08:00→18:00)
--- NOTE | 2018-12-27 09:03 | NUR ---
DR. GALLARDO AT BEDSIDE ORDERS RECEIVED
[2018-12-27] MEDS: CYANOCOBALAMIN (B-12) 1000 MCG/1 ML VIAL SUBCUT SCH (09:57)
[2018-12-27] MEDS: PANTOPRAZOLE 40 MG/10 ML VIAL IV SCH (09:57)
[2018-12-27] MEDS: ASPirin 81 mg TAB PO SCH (09:57)
[2018-12-27] MEDS: AMIODARONE HCL 200 MG TAB PO SCH ×3 (09:58→22:04)
[2018-12-27] MEDS: METOPROLOL TARTRATE 25 MG TAB PO SCH ×3 (09:58→22:00)
[2018-12-27] MEDS: NITROGLYCERIN 0.2MG/HR TOPICAL PATCH TD SCH (09:59)
[2018-12-27] MEDS ORDERED: POTASSIUM EFFERVESENT TAB 25 MEQ GT ONE (10:15)
[2018-12-27] MEDS: POTASSIUM CHL 20MEQ/100ML 100 ML IV SCH ×2 (10:22→12:08)
--- NOTE | 2018-12-27 11:37 | NUR ---
Kamla TRIPP AT BEDSIDE
[2018-12-27] MEDS ORDERED: NIFEdipine 10 MG CAP PO ONE (11:45)
[2018-12-27] MEDS: HEPARIN SODIUM (PORCINE) 5000 UNITS/ML 1ML VIAL SC SCH ×2 (13:46→21:49)
--- NOTE | 2018-12-27 14:08 | NUR ---
PARTIAL LINEN CHANGE PERFORMED AT THIS TIME
--- NOTE | 2018-12-27 18:27 | NUR ---
DINNER PATIENT REFUSING DINNER. EDUCATED ON IMPORTANCE OF NUTRITION. PATIENT STATES "NOT NOW. WILL CONTINUE TO EDUCATE AND OFFER FOOD TOLERATED
--- NOTE | 2018-12-27 19:00 | NUR ---
DR. FIGUEROA AT BEDSIDE
--- NOTE | 2018-12-27 19:30 | NUR ---
INITIAL CONTACT ASSUMED CARE OF PATIENT PATIENT APPEARS TO BE RESTING IN BED COMFORTABLY IN SUPINE POSITION AT THIS TIME AAO TO NAME ONLY, VITAL SIGNS SHOW HYPERTENSION AT THIS TIME NOTED RIGHT SIDE DEFICITS/SLIGHT FACIAL DROOP, NO S/S OF DISTRESS NOTED, PATIENT DENIES PAIN AT THIS TIME. NOTED 20 G IV LEFT FOREARM NO S/S OF PHLEBITIS OR INFILTRATION. F/C INTACT AND DRAINING TO GRAVITY. PATIENT IN FULL VIEW OF NURSES STATION. BED IN LOWEST LOCKED POSITION, SIDE RAILS UP X 2, SAFETY MAINTAINED, WILL CONTINUE TO MONITOR
[2018-12-27] MEDS: ATORVASTATIN 20 MG TAB PO SCH (21:50)
[2018-12-28] MEDS: hydrALAZINE HCL 25 MG TAB PO SCH ×4 (01:39→18:29)
[2018-12-28] MEDS: cloNIDine HCL 0.1 MG TAB PO PRN (03:09)
--- NOTE | 2018-12-28 05:00 | NUR ---
Patient bathe/linen change Patient given complete bath. Skin integrity assessed for any changes. Linens changed. Patient repositioned for comfort.
[2018-12-28 06:31] LABS: Basophils # (auto) 0 uL; Basophils % (auto) 0.3 % (0.0-2.0); Eosinophils # (auto) 0.1 uL; Eosinophils % (auto) 1.5 % (0.0-7.0); Hematocrit 46.2 % (41.0-53.0); Lymphocytes # (auto) 0.8 uL; Lymphocytes % (auto) 14.6 % (10.0-50.0); Mean Corpuscular Hemoglobin 32.7 pg (28.0-32.0); Mean Corpuscular Hgb Conc. 34.7 g/dL (32.0-36.0); Mean Corpuscular Volume 94.2 fL (80.0-100.0); Monocytes # (auto) 0.5 uL; Monocytes % (auto) 9.4 % (0.0-12.0); Neutrophils % (auto) 74.2 % (37.0-80.0); Nucleated Red Blood Cells % 0.2 %; Platelet Count (auto) 249 10^3/uL (140-450); Red Cell Distribution Width 13.6 % (11.8-14.3); White Blood Cell 5.3 10^3/uL (4.4-10.8)
[2018-12-28] MEDS: HEPARIN SODIUM (PORCINE) 5000 UNITS/ML 1ML VIAL SC SCH ×3 (06:49→22:50)
[2018-12-28 07:00] LABS: Potassium 3.3 mmol/L (3.5-5.1)
[2018-12-28 07:11] LABS: Albumin 2.8 g/dL (3.4-5.0); BUN/Creatinine Ratio 23.1; Bilirubin, Total 1.4 mg/dL (0.2-1.0); Calcium 7.9 mg/dL (8.5-10.1); Total Protein 5.9 g/dL (6.4-8.2)
--- NOTE | 2018-12-28 07:30 | NUR ---
REPORT RECEIVED FROM GHADA RNPENELOPE. PT RESTING IN BED WITH EYES CLOSED AND NO DISTRESS NOTED.
[2018-12-28 07:55] VITALS: BP 156/85
[2018-12-28] MEDS: SOD CHL 0.45% 1,000 ML IV SCH (07:55)
--- NOTE | 2018-12-28 07:55 | NUR ---
ASSESSMENT WOKE PT FOR ASSESSMENT. HE CAN TELL ME HIS NAME AND , BUT UNAWARE OF WHERE HE IS AND WHY HE IS HERE. VERY PLEASANTLY CONFUSED. NO MOVEMENT NOTED ON RIGHT LEG/FOOT. VERY WEAK RIGHT HAND FOSTER WINDER BUT UNABLE TO LIFT ARM OR HAND OFF THE BED OR MOVE THEM. SLIGHT RIGHT FACIAL DROOP NOTED. UNDERSTANDABLE SPEECH. LUNGS CLEAR THROUGHOUT. ON ROOM AIR WITH O2 SAT OF 91%. TELE SB 57 WITH FIRST DEGREE HB AND BBB WITH ST ELEVATION IN LEAD V. SCDS TO BLE. PALPABLE PULSES TO ALL EXTREMITIES. ABD SOFT WITH + BOWEL SOUNDS. LAST BM WAS ON 12/27. BABB CATHETER DRAINING CLEAR YELLOW URINE. TURNED FOR COMFORT AND SKIN IS INTACT WITH AN OPTIFOAM TO SACRUM A PREVENTATIVE. RAILS UP FOR PT SAFETY AND BED ALARM ON. CONTINUE TO MONITOR,.
--- NOTE | 2018-12-28 09:00 | NUR ---
UNABLE TO FEED SELF RIGHT HANDED. FED PT AND HE TOOK APPROXIMATELY 25% OF BREAKFAST.
[2018-12-28] MEDS: Ensure Enlive Strawberry 8oz Bottle PO SCH ×3 (09:31→18:29)
[2018-12-28] MEDS: ASPirin 81 mg TAB PO SCH (09:32)
[2018-12-28] MEDS: METOPROLOL TARTRATE 25 MG TAB PO SCH ×2 (09:32→23:47)
[2018-12-28] MEDS: AMIODARONE HCL 200 MG TAB PO SCH ×2 (09:32→21:50)
[2018-12-28] MEDS: NITROGLYCERIN 0.2MG/HR TOPICAL PATCH TD SCH (09:33)
[2018-12-28] MEDS: PANTOPRAZOLE 40 MG/10 ML VIAL IV SCH (09:42)
[2018-12-28] MEDS: CYANOCOBALAMIN (B-12) 1000 MCG/1 ML VIAL SUBCUT SCH (10:16)
[2018-12-28 11:50] VITALS: BP 137/80
--- NOTE | 2018-12-28 12:15 | NUR ---
STARTED ON POTASSIUM REPLACEMENT PER DR SARKAR ORDERS.
[2018-12-28] MEDS: POTASSIUM CHL 20MEQ/100ML 100 ML IV SCH ×3 (12:19→16:34)
[2018-12-28] MEDS ORDERED: NIFEdipine ER 30 MG TAB PO ONE (12:45)
--- NOTE | 2018-12-28 12:47 | NUR ---
PT SEEN AND EXAMINED BY DR SARKAR AND HE SPOKE WITH PT'S SON AND DAUGHTER , WHO WERE AT THE BEDSIDE. RECEIVED DOWNGRADE ORDERS FOR TELE
[2018-12-28 15:50] VITALS: BP 192/97
--- NOTE | 2018-12-28 17:23 | NUR ---
PT TRANSFERRING TO ROOM 271 A . REPORT CALLED TO RECEIVING RNMARCELINA.
[2018-12-28] MEDS ORDERED: ACETAMINOPHEN 650 MG RECT SUPP PR PRN (17:30)
--- NOTE | 2018-12-28 17:38 | NUR ---
[facility] [place] cardiac care nurse and portable 02. All patient medications and personal belongings transferred with patient to receiving floor. Patient care transferred to MARCELINA ALCANTAR.
[2018-12-28] MEDS: ISOSORBIDE DINITRATE 10 MG TAB PO SCH (18:29)
--- NOTE | 2018-12-28 19:18 | NUR ---
GAVE REPORT TO ESTEFANY ALCANTAR.
[2018-12-28] MEDS ORDERED: IOHEXOL 350 MG/ML 100ML IJ ONE (19:58)
[2018-12-28 20:39] VITALS: BP 157/73
[2018-12-28] MEDS: ATORVASTATIN 20 MG TAB PO SCH (21:50)
[2018-12-29] MEDS: hydrALAZINE HCL 25 MG TAB PO SCH ×4 (00:20→18:19)
[2018-12-29 05:00] VITALS: BP 162/90
[2018-12-29 05:34] LABS: Basophils # (auto) 0 uL; Basophils % (auto) 0.5 % (0.0-2.0); Eosinophils # (auto) 0.1 uL; Eosinophils % (auto) 1.8 % (0.0-7.0); Hematocrit 44.7 % (41.0-53.0); Hemoglobin 15.3 g/dL (13.5-17.5); Lymphocytes % (auto) 19.5 % (10.0-50.0); Mean Corpuscular Hemoglobin 32.4 pg (28.0-32.0); Mean Corpuscular Hgb Conc. 34.3 g/dL (32.0-36.0); Mean Corpuscular Volume 94.6 fL (80.0-100.0); Monocytes # (auto) 0.4 uL; Monocytes % (auto) 8.9 % (0.0-12.0); Neutrophils # (auto) 3.5 uL; Neutrophils % (auto) 69.3 % (37.0-80.0); Nucleated Red Blood Cells % 0.2 %; Platelet Count (auto) 248 10^3/uL (140-450); Red Blood Cells 4.72 10^6/uL (4.5-5.90); Red Cell Distribution Width 13.5 % (11.8-14.3); White Blood Cell 5.1 10^3/uL (4.4-10.8)
[2018-12-29 06:08] LABS: Albumin 2.9 g/dL (3.4-5.0); BUN/Creatinine Ratio 22.1; Potassium 3.8 mmol/L (3.5-5.1)
[2018-12-29 06:10] LABS: Bilirubin, Total 1.3 mg/dL (0.2-1.0); Total Protein 5.8 g/dL (6.4-8.2)
[2018-12-29] MEDS: HEPARIN SODIUM (PORCINE) 5000 UNITS/ML 1ML VIAL SC SCH ×3 (06:18→23:01)
[2018-12-29] MEDS: ISOSORBIDE DINITRATE 10 MG TAB PO SCH ×3 (06:22→18:17)
--- NOTE | 2018-12-29 07:00 | NUR ---
Opening Shift Note Assumed care of patient, awake, alert, and oriented x3. No S/S of distress/SOB, but patient reports pain in left eye of 5/10. IV in left forearm 20 gauge asymptomatic, intact, patent, and saline locked. Parker catheter draining clear gold yellow urine to gravity. Bed locked and in lowest position and call light is within reach. Instructed on POC and to call for assist PRN, and patient verbalized understanding to the best of his ability. Will continue to monitor for changes Q1hr and PRN.
[2018-12-29] MEDS: Ensure Enlive Strawberry 8oz Bottle PO SCH ×3 (08:00→18:00)
[2018-12-29 09:00] VITALS: BP 122/68
[2018-12-29] MEDS: NITROGLYCERIN 0.2MG/HR TOPICAL PATCH TD SCH (10:00)
[2018-12-29] MEDS: CYANOCOBALAMIN (B-12) 1000 MCG/1 ML VIAL SUBCUT SCH (10:17)
[2018-12-29] MEDS: PANTOPRAZOLE 40 MG/10 ML VIAL IV SCH (10:17)
[2018-12-29] MEDS: AMIODARONE HCL 200 MG TAB PO SCH ×2 (10:21→22:58)
[2018-12-29] MEDS: METOPROLOL TARTRATE 25 MG TAB PO SCH ×2 (10:21→22:59)
[2018-12-29] MEDS: ASPirin 81 mg TAB PO SCH (10:23)
[2018-12-29] MEDS: NIFEdipine ER 30 MG TAB PO SCH (10:24)
[2018-12-29] MEDS: LOSARTAN POTASSIUM 50 MG TAB PO SCH (10:24)
--- NOTE | 2018-12-29 10:30 | NUR ---
PHYSICAL THERAPY AT BEDSIDE.
[2018-12-29] MEDS ORDERED: LISI-646 (12:13)
[2018-12-29] MEDS ORDERED: CLO01T (12:13)
[2018-12-29] MEDS ORDERED: TAMS0.4C36 (12:13)
[2018-12-29] MEDS ORDERED: HYDR50TA15 (12:13)
[2018-12-29] MEDS ORDERED: GALA8TAB (12:13)
--- NOTE | 2018-12-29 12:38 | NUR ---
Nutrition Follow-up Notes Wt.: 84.6 kg Pt's asleep, no signs of distress noted earlier, currently on Pureed Cardiac: 2 gms Na, Low Chol, Low Fat diet with Ensure Enlive 1 carton TID with inadequate PO of avg ~50% x 6 per RN doc Est. Needs: 2150 kcal to 2600 kcal (25-30 kcal/kgBW), 87 gms to 104 gms pro (1.0-1.2 gms/kgBW). Will continue to monitor pertinent labs and reassess nutrient need prn Labs: CA 8.0 L, ALB 2.9 L. Skin: Aayush scale 12 high risk, redness around eye per masonry instructor. GI: Pt had 1 BM on 12/26 per masonry instructor. PES: Increased nutrient needs r/t current/chronic medical status aeb Dementia, ALOC,<75% consumed meals. Altered nutrition related lab values r/t current/chronic medical condition aeb hypernatremia, hypokalemia, hyperchloremia, elev. BUN, hyperbilirubinemia, hypocalcemia. Will continue to monitor PO intake, skin status, pertinent labs and weight trend. F/u in 3 to 5 days. Rec.: 1.) Continue close supervision and feeding assistance prn with meals. 2.) If Albumin level continues trending down, consider Prostat 1 pkt BID. 3.) Refer pt to RD for further nutrition education and weight monitoring upon discharge. 4.) Continue current plan of care.
[2018-12-29 14:53] VITALS: BP 124/69
[2018-12-29 21:45] VITALS: BP 145/75
[2018-12-29] MEDS: ATORVASTATIN 20 MG TAB PO SCH (22:59)
--- NOTE | 2018-12-29 23:00 | NUR ---
Pt was found at 22:15 sitting on floor. Awake and alert. States he needed to get up to urinate, (He did not realize that he had a khanna urinary catheter in place. Bed in low position, and bed rails were up. It appears patient slid between the bed rails. No c/o pain. No s/s of injury. Pulse 88, BP 159/80, resp 20. Pt transferred to room with 24 hour sitter.
[2018-12-30] MEDS: hydrALAZINE HCL 25 MG TAB PO SCH ×4 (00:10→18:00)
[2018-12-30 05:00] VITALS: BP 163/75
[2018-12-30] MEDS: HEPARIN SODIUM (PORCINE) 5000 UNITS/ML 1ML VIAL SC SCH ×2 (06:11→14:00)
[2018-12-30] MEDS: ISOSORBIDE DINITRATE 10 MG TAB PO SCH ×3 (06:14→18:00)
[2018-12-30 06:29] LABS: Basophils # (auto) 0 uL; Basophils % (auto) 0.3 % (0.0-2.0); Eosinophils # (auto) 0.1 uL; Eosinophils % (auto) 2.2 % (0.0-7.0); Hematocrit 43.1 % (41.0-53.0); Hemoglobin 14.9 g/dL (13.5-17.5); Lymphocytes # (auto) 0.9 uL; Lymphocytes % (auto) 13.3 % (10.0-50.0); Mean Corpuscular Hemoglobin 32.5 pg (28.0-32.0); Mean Corpuscular Hgb Conc. 34.5 g/dL (32.0-36.0); Mean Corpuscular Volume 94.2 fL (80.0-100.0); Monocytes # (auto) 0.6 uL; Monocytes % (auto) 8.7 % (0.0-12.0); Neutrophils # (auto) 4.9 uL; Neutrophils % (auto) 75.5 % (37.0-80.0); Platelet Count (auto) 269 10^3/uL (140-450); Red Blood Cells 4.57 10^6/uL (4.5-5.90); Red Cell Distribution Width 13.1 % (11.8-14.3); White Blood Cell 6.4 10^3/uL (4.4-10.8)
[2018-12-30 06:49] LABS: Albumin 2.9 g/dL (3.4-5.0); BUN/Creatinine Ratio 21.6; Calcium 8.4 mg/dL (8.5-10.1); Potassium 3.3 mmol/L (3.5-5.1)
[2018-12-30 06:51] LABS: Bilirubin, Total 1.3 mg/dL (0.2-1.0); Total Protein 5.8 g/dL (6.4-8.2)
--- NOTE | 2018-12-30 07:00 | NUR ---
Message left for son, Issa that pt has room change and sitter due to him trying to get out of bed. GRAZYNA Dooley notified of fall with no apparent injury at 2215 on 12/29/2018. Report given to day nurse.
--- NOTE | 2018-12-30 07:00 | NUR ---
Opening Shift Note Assumed care of patient, awake, alert, and oriented x2. No S/S of distress/SOB or pain. IV in left forearm 20 gauge asymptomatic, intact, patent, and saline locked. Bed locked and in lowest position and call light is within reach, bed alarm on, and sitter is at bedside for 24 hour assistance and care of patient. Instructed on POC and to call for assist PRN, and patient verbalized understanding to the best of his ability. Will continue to monitor for changes Q1hr and PRN.
[2018-12-30] MEDS: Ensure Enlive Strawberry 8oz Bottle PO SCH ×3 (08:00→18:00)
--- NOTE | 2018-12-30 09:24 | NUR ---
re-assessment Per consult SNF placement. order has been sent to [facility] again. Darling in admissions is in a meeting and will review once out of meeting and call me back. Addendum: 12/30/18 at 0908 by Judy Pinzon Amended: Links added.
[2018-12-30] MEDS ORDERED: CYANOCOBALAMIN 500 MCG TAB PO SCH (10:00)
[2018-12-30] MEDS: NITROGLYCERIN 0.2MG/HR TOPICAL PATCH TD SCH (10:00)
[2018-12-30] MEDS: CYANOCOBALAMIN (B-12) 1000 MCG/1 ML VIAL SUBCUT SCH (10:24)
[2018-12-30] MEDS: PANTOPRAZOLE 40 MG/10 ML VIAL IV SCH (10:24)
[2018-12-30] MEDS: ASPirin 81 mg TAB PO SCH (10:25)
[2018-12-30] MEDS: LOSARTAN POTASSIUM 50 MG TAB PO SCH (10:29)
[2018-12-30] MEDS: AMIODARONE HCL 200 MG TAB PO SCH (10:29)
[2018-12-30] MEDS: METOPROLOL TARTRATE 25 MG TAB PO SCH (10:29)
[2018-12-30] MEDS: NIFEdipine ER 30 MG TAB PO SCH (10:30)
--- NOTE | 2018-12-30 14:55 | NUR ---
re-assessment MD order was sent to [facility]. Per Vera at [facility] she has been accepted to room [address] Angel is the accepting MD. Call report to [phone]. Address to facility is [address] [place] [address]. Issa clarke son has set up transport by [place] with [facility] transport at 6pm [phone]. KATHARINE Aj has been notified. Issa verbalized understanding and agreed to discharge plan to SNF. Addendum: 12/30/18 at 1502 by Judy TOMLIN Amended: Links added.
[2018-12-30 16:28] VITALS: BP 146/84
--- NOTE | 2018-12-30 18:45 | NUR ---
PATIENT TRANSFERRED TO [facility], IN [facility]. Discharge instructions given as ordered. All questions and concerns addressed. Patient verbalized understanding. Medication reconciliation form completed and copy given to patient. IV removed with catheter intact, pressure dressing applied, khanna catheter removed. Telemetry unit returned to [facility]. Patient taken to vehicle via gurney with transport staff members. No distress noted at time of departure.
== END 2018-12-30 18:45 | DRG 65 ==
LOC: ER 11:23 → UNDOADMIN 14:50 → TELE 14:50 → TELE-EAST 12-19 13:37 → ICU WEST 12-22 18:45 → ICU CENTRL 12-26 18:15 → DOU IN ICU 12-26 18:46 → TELE-WESTW 12-28 17:35
PROVIDERS: ADMIT Internal Medicine; ATTEND Internal Medicine Pulmonary Disease
DX: I63.9 Cerebral infarction, unspecified (principal); G81.91 Hemiplegia, unspecified affecting right dominant side; E87.0 Hyperosmolality and hypernatremia; I16.1 Hypertensive emergency; R47.01 Aphasia; I16.0 Hypertensive urgency; R47.1 Dysarthria and anarthria; R29.705 NIHSS score 5; E78.5 Hyperlipidemia, unspecified; I10 Essential (primary) hypertension; I48.91 Unspecified atrial fibrillation; I67.2 Cerebral atherosclerosis; R13.10 Dysphagia, unspecified; W06.XXXA Fall from bed, initial encounter; Z66 Do not resuscitate; F03.90 Unspecified dementia, unspecified severity, without behavioral disturbance, psychotic disturbance, mood disturbance, and anxiety; Z79.82 Long term (current) use of aspirin; Z79.899 Other long term (current) drug therapy
CPT/HCPCS: 36415; 51702; 70450; 70496; 70498; 70551; 71045; 80048; 80053; 80061; 81001; 82550; 82607; 82746; 82962; 83036; 83735; 84439; 84443; 84481; 84484; 85025; 85610; 85730; 87081; 92610; 93005; 93306; 94761; 95819; 96374; 96376; 97110; 97163; 97530; A6257; C9113; G0378; J3480